=== PATIENT | male | born 1990 | race Caucasian/White ===

== ENCOUNTER 2017-12-29 20:27 | Emergency (ER) | payer SELFPAY ==
[2017-12-29] MEDS ORDERED: LORazepam 1 MG Tab PO ONE (21:04)
--- NOTE | 2017-12-29 21:17 | EDM.PDOC ---
ED HPI GENERAL MEDICAL PROBLEM - General Chief Complaint: General Stated Complaint: ANXIETY Time Seen by Provider: 12/29/17 20:30 - History of Present Illness INITIAL COMMENTS - FREE TEXT/NARRATIVE: HISTORY AND PHYSICAL: History of present illness: 27-year-old transvestite male presenting to emergency department chief complaint of 2-3 months of worsening shortness of breath and difficulty with swallowing. Patient states that for the past 2 months she has felt more short of breath and has had some difficulty swallowing. States that she does have an allergy to cats and this is about the same time that they did have a new cat and is wondering if all her symptoms are secondary to that. She has no history of asthma but is a current smoker smoking approximately half a pack for 10 years. She does have a history of anxiety and depression. She denies any associated fever or chills. States that even when she chews up her food well it still feels like it is more difficult to swallow than before. She denies any inability to completely get food down, hot potato voice, or drooling. She did have a strep throat infection approximately 1 month ago but has felt well since. Currently denies any chest pain, palpitations, syncopal episodes, or focal neurologic deficits. She has been feeling very anxious specifically being in the emergency room today. Her boyfriend brought her to the emergency room for further evaluation. On exam breath sounds are equal bilaterally there is some mild decrease in air movement however no wheezes noted. Review of systems: As per history of present illness and below otherwise all systems reviewed and negative. Past medical history: As per history of present illness and as reviewed below otherwise noncontributory. Surgical history: As per history of present illness and as reviewed below otherwise noncontributory. Social history: No reported history of drug or alcohol abuse. Family history: As per history of present illness and as reviewed below otherwise noncontributory. Physical exam: HEENT: Atraumatic, normocephalic, pupils reactive, negative for conjunctival pallor or scleral icterus, mucous membranes moist, throat clear, neck supple, nontender, trachea midline. Lungs: Clear to auscultation, breath sounds equal bilaterally, mild decrease in air movement throughout but no wheezes, chest nontender. Heart: S1S2, regular, negative for clicks, rubs, or JVD. Abdomen: Soft, nondistended, nontender. Negative for masses or hepatosplenomegaly. Negative for costovertebral tenderness. Pelvis: Stable nontender. Genitourinary: Deferred. Rectal: Deferred. Extremities: Atraumatic, negative for cords or calf pain. Neurovascular unremarkable. Neuro: Awake, alert, oriented. Cranial nerves II through XII unremarkable. Cerebellum unremarkable. Motor and sensory unremarkable throughout. Exam nonfocal. Diagnostics: Chest x-ray Therapeutics: Ativan 1 mg, 125 mg Solu-Medrol IM 1 Impression: Allergic rxn to cat hair Plan: Chest x-ray showed no acute cardiopulmonary disease. Her symptoms most likely are related to her cat hair allergy. Instructed her to try to refrain from keeping the cats as this will most likely aggravate her current issues. In addition patient was given Solu-Medrol 125 mg IM and a prescription for prednisone 20 mg by mouth daily 4 days. She was instructed to follow-up with her primary care provider and I gave her information for this. In addition I instructed her to return to emergency department if she had any new or worsening symptoms. Definitive disposition and diagnosis as appropriate pending reevaluation and review of above. abdomen Pain Score (Numeric/FACES): 2 - Related Data Allergies Allergy/AdvReac Type Severity Reaction Status Date / Time acetaminophen [From Tylenol] Allergy Swelling Verified 12/29/17 21:00 Home Meds: Home Meds . [No Known Home Meds] 12/29/17 [History] Past Medical History - Past Surgical History HEENT Surgical History: Reports: Other (See Below) Other HEENT Surgeries/Procedures: lip sx Social & Family History - Family History Family Medical History: Noncontributory - Tobacco Use Smoking Status *Q: Former Smoker Used Tobacco, but Quit: Yes Month/Year Tobacco Last Used: 2 - Recreational Drug Use Recreational Drug Use: No ED ROS GENERAL - Review of Systems Review Of Systems: ROS reveals no pertinent complaints other than HPI. ED EXAM, GENERAL - Physical Exam Exam: See Below Course - Vital Signs Last Recorded V/S: Last Vital Signs Temp 97.6 F 12/29/17 20:27 Pulse 107 H 12/29/17 20:27 Resp 18 12/29/17 20:27 BP 157/107 H 12/29/17 20:27 Pulse Ox 99 12/29/17 20:27 - Orders/Labs/Meds Orders: Active Orders 24 hr Category Date Time Status CXR [Chest 2V] [CR] Stat Exams 12/29/17 21:05 Taken Meds: Medications Discontinued Medications Generic Name Dose Route Start Last Admin Trade Name Kwan PRN Reason Stop Dose Admin Lorazepam 1 mg 12/29/17 21:04 12/29/17 21:11 Ativan PO 12/29/17 21:05 1 mg ONETIME ONE Administration Methylprednisolone Sodium Succinate 125 mg 12/29/17 22:00 Solu-Medrol IM 12/29/17 22:01 ONETIME ONE Departure - Departure Time of Disposition: 22:06 Disposition: Home, Self-Care 01 Condition: Good Clinical Impression: Airborne allergy, current reaction - Discharge Information Referrals: PCP,None [Primary Care Provider] - Forms: ED Department Discharge Additional Instructions: My general discharge The following information is given to patients seen in the emergency department who are being discharged to home. This information is to outline your options for follow-up care. We provide all patients seen in our emergency department with a follow-up referral. The need for follow-up, as well as the timing and circumstances, are variable depending upon the specifics of your emergency department visit. If you don't have a primary care physician on staff, we will provide you with a referral. We always advise you to contact your personal physician following an emergency department visit to inform them of the circumstance of the visit and for follow-up with them and/or the need for any referrals to a consulting specialist. The emergency department will also refer you to a specialist when appropriate. This referral assures that you have the opportunity for follow-up care with a specialist. All of these measure are taken in an effort to provide you with optimal care, which includes your follow-up. Under all circumstances we always encourage you to contact your private physician who remains a resource for coordinating your care. When calling for follow-up care, please make the office aware that this follow-up is from your recent emergency room visit. If for any reason you are refused follow-up, please contact the [facility] Emergency Department at and asked to speak to the emergency department charge nurse. [facility] [address] [place] [id number] [facility] [address] [place] [address] Please call 1 of the above numbers and schedule a follow-up appointment. Be sure to tell them that you were seen in the emergency department and they wish for you to be followed up as soon as possible. Return the emergency department if any new or worsening symptoms as we discussed. Take medication as prescribed. - My Orders Last 24 Hours: My Active Orders 12/29/17 21:05 CXR [Chest 2V] [CR] Stat - Assessment/Plan Last 24 Hours: My Active Orders 12/29/17 21:05 CXR [Chest 2V] [CR] Stat
[2017-12-29] MEDS ORDERED: methylPREDNISolone Sodium Succinate 125 MG/2 ML SDV IM ONE (22:00)
--- NOTE | 2017-12-30 14:49 | CR ---
EXAM DATE: 12/29/17 PATIENT'S AGE: 27 Patient: BIJU BEASLEY Facility: [place], [place] Site . Site : 1990 Study: XRay Chest [id number]/22/2018 9:28:49 PM Ordering Physician: Jose L Wilson Final Report: INDICATION: Shortness of breath, anxiety for 3 months TECHNIQUE: Chest radiograph 2 views COMPARISON: None FINDINGS: Mediastinum: The mediastinum is normal in appearance. The heart silhouette is normal in size and morphology. Lungs: Both lungs are unremarkable in appearance. No sign of pleural effusion seen. No pneumothorax is identified. Bones and soft tissue: Unremarkable for age. IMPRESSION: 1. No acute cardiopulmonary disease is seen. Dictated by: Johnathon Gonzalez MD @ 12/29/2017 21:55:51 (Electronic Signature) Report Signed by Proxy. [facility]
== END 2017-12-29 22:15 | disposition home or self-care (01) ==
LOC: MW.ED 20:27
DX: J30.89 Other allergic rhinitis (principal); Z87.891 Personal history of nicotine dependence; Z88.8 Allergy status to other drugs, medicaments and biological substances
CPT/HCPCS: 71046; 96372; 99284; A9270; J2930; 99283